=== PATIENT | male | born 1950 ===

== ENCOUNTER 2017-09-03 15:43 | Outpatient (CLI) | payer OTHER ==
[~2017-09-03 15:43] MED LIST: ACYCLOVIR800 MG PO; KETO10TA2 PO; NEURONTIN300 MG PO; NORVASC5 MG; VASOTEC10 MG
== END 2017-09-03 17:00 | disposition home or self-care (01) ==
LOC: RAD 15:43
DX: M25.572 Pain in left ankle and joints of left foot (principal); M25.571 Pain in right ankle and joints of right foot

== ENCOUNTER 2018-01-23 16:11 | Emergency (ER) | payer OTHER ==
[~2018-01-23] VITALS: Ht 167.6 cm; Wt 108.9 kg
[2018-01-23] MEDS ORDERED: SLO-NIACIN500 MG (16:36)
[2018-01-23] MEDS ORDERED: TAMS0.4C (16:36)
== END 2018-01-23 17:53 | disposition home or self-care (01) ==
LOC: ER 16:11
DX: J20.9 Acute bronchitis, unspecified (principal); J32.8 Other chronic sinusitis

== ENCOUNTER 2018-08-29 01:30 | Emergency (ER) | payer OTHER ==
[~2018-08-29] VITALS: Ht 165.1 cm; Wt 108.9 kg
[~2018-08-29 01:30] MED LIST changes: +SLO-NIACIN500 MG; +TAMS0.4C
[2018-08-29] MEDS ORDERED: VITAMIN C500 M5 (01:52)
[2018-08-29] MEDS ORDERED: OMEGA 3 1,0001 EACH (01:53)
[2018-08-29] MEDS ORDERED: MECLIZINE HCL25 MG PO (06:17)
== END 2018-08-29 06:39 | disposition home or self-care (01) ==
LOC: ER 01:30
DX: R42 Dizziness and giddiness (principal)